=== PATIENT | female | born 1975 ===

== ENCOUNTER 2018-08-09 14:09 | Outpatient (CLI) | payer BC | END 2018-08-09 14:10 | disposition home or self-care (01) | LOC: C.MAMMO 14:09 | DX: D24.1 Benign neoplasm of right breast (principal) ==

== ENCOUNTER 2018-11-28 17:35 | Emergency (ER) | payer BC, OTHER ==
[2018-11-28 17:48] VITALS: BP 131/79; PULSE 73; RESP 18; TEMP 98.3; O2SAT 99
--- NOTE | 2018-11-28 19:10 | C.PDOC ---
History Of Present Illness 43 y/o female comes in to ED complaining of lower back pain and groin pain after doing abdominal exercises at the gym. Patient denies direct trauma, nausea, vomiting, hematuria, or dysuria. Chief Complaint (Nursing): Back Pain History Per: Patient History/Exam Limitations: no limitations Onset/Duration Of Symptoms: Hrs Current Symptoms Are (Timing): Still Present Past Medical History Reviewed: Historical Data, Nursing Documentation, Vital Signs Vital Signs: Last Vital Signs Temp 98.3 F 11/28/18 17:42 Pulse 73 11/28/18 17:42 Resp 18 11/28/18 17:42 BP 131/79 11/28/18 17:42 Pulse Ox 99 11/28/18 17:42 - Medical History PMH: Denies: Chronic Kidney Disease - [facility] Procedures ASSIST VAG HYSTER(LAVH) (03/26/15) LAPAROSCOPIC ROBOTIC ASSISTED PROCEDURE (03/26/15) REMOVE BOTH FALLOP TUBES (03/26/15) Family History: States: No Known Family Hx - Social History Hx Tobacco Use: No Hx Alcohol Use: No Hx Substance Use: No - Immunization History Hx Tetanus Toxoid Vaccination: No Hx Influenza Vaccination: No Hx Pneumococcal Vaccination: No Review Of Systems Except As Marked, All Systems Reviewed And Found Negative. Gastrointestinal: Negative for: Nausea, Vomiting, Abdominal Pain Genitourinary: Positive for: Pelvic Pain. Negative for: Dysuria, Hematuria Musculoskeletal: Positive for: Back Pain Physical Exam - Physical Exam Appears: Non-toxic, No Acute Distress Skin: Warm, Dry Head: Atraumatic Eye(s): bilateral: Normal Inspection Oral Mucosa: Moist Neck: Supple Back: No CVA Tenderness, Other (right lumbar musculature tenderness) Extremity: Bilateral: Atraumatic, Normal Color And Temperature, Normal ROM Neurological/Psych: Oriented x3, Normal Speech, Normal Motor, Normal Sensation ED Course And Treatment O2 Sat by Pulse Oximetry: 99 (RA) Pulse Ox Interpretation: Normal Disposition - Disposition Referrals: Shaik Saldivar MD [Staff Provider] - Disposition: HOME/ ROUTINE Disposition Time: 18:10 Condition: GOOD Additional Instructions: DELBERT MOSER, thank you for letting us take care of you today. The emergency medical care you received today was directed at your acute symptoms. If you were prescribed any medication, please fill it and take as directed. It may take several days for your symptoms to resolve. Return to the Emergency Department if your symptoms worsen, do not improve, or if you have any other problems. Please contact your doctor or call one of the physicians/clinics you have been referred to that are listed on the Patient Visit Information form that is included in your discharge packet. Bring any paperwork you were given at discharge with you along with any medications you are taking to your follow up visit. Our treatment cannot replace ongoing medical care by a primary care provider outside of the emergency department. Thank you for allowing the [facility] team to be part of your care today. Follow up with your primary care doctor in 2-3 days for re-evaluation and further management. Prescriptions: Cyclobenzaprine [Cyclobenzaprine HCl] 10 mg PO Q8 PRN #20 tab PRN Reason: Muscle Spasm Instructions: Low Back Pain (DC), Lumbar Muscle Strain (DC) Forms: Your Tribute (Sinhala) - Clinical Impression Clinical Impression: Low back pain - Scribe Statement The provider has reviewed the documentation as recorded by the Taurus Guo Provider Attestation: All medical record entries made by the Taurus were at my direction and personally dictated by me. I have reviewed the chart and agree that the record accurately reflects my personal performance of the history, physical exam, medical decision making, and the department course for this patient. I have also personally directed, reviewed, and agree with the discharge instructions and disposition.
== END 2018-11-28 18:21 | disposition home or self-care (01) ==
LOC: C.ER 17:35
DX: M54.5 Low back pain (principal)